=== PATIENT | female | born 1965 | race Caucasian/White ===

== ENCOUNTER → 2016-11-23 | Outpatient (CLI) | payer BC ==
--- NOTE | 2016-11-23 16:37 | RADIOLOGY REPORT (SQ) ---
EXAM DESCRIPTION: MRI PELVIS COMBO COMPLETED DATE/TIME: 11/23/2016 2:31 pm REASON FOR STUDY: RECTO VAGINAL MASS D12.8 BENIGN NEOPLASM OF RECTUM COMPARISON: None. TECHNIQUE: Multiplanar multisequence imaging performed without and with contrast including axial, sa gittal and coronal T2, axial T, axial gradient fat sat T1, axial, sagittal and coronal fat sat T2 pos t contrast. CONTRAST TYPE AND DOSE: 15 mL Multihance. RENAL FUNCTION: GFR > 60. LIMITATIONS: None. FINDINGS: Patient is post complete hysterectomy. There is a pessary in the vagina. Near the introitus, a very subtle nodule with contrast enhancement is present along the anterior wall of the rectum, best superior to the anal rectal junction. This is 1.7 x 1.5 cm in size, best shown on axial T1 postcontrast image 83, and sagittal postcontrast image 16. This could represent a small neoplasm along the anterior wall at the anal rectal junction. Bladder, female urethra unremarkable. No free pelvic fluid. No pelvic adenopathy. Report discussed with Dr Saez IMPRESSION: 1.7 x 1.5 cm enhancing nodule along the anterior wall of the rectum at the anal rectal j unction. Question small tumor. TECHNICAL DOCUMENTATION: JOB ID: [id number] [employer]- All Rights Reserved
== END ==
LOC: RAD 13:20
PROVIDERS: ATTEND Specialist
DX: D12.8 Benign neoplasm of rectum (principal)
CPT/HCPCS: 82565; 72197; A9576